=== PATIENT | male | born 1990 ===

== ENCOUNTER 2018-04-17 21:35 | Inpatient (IN) | payer OTHER, MEDICAID ==
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
[2018-04-17 23:24] LABS: BASO # 0.1 K/uL (0.0-0.2); BASO % 1.2 % (0.0-2.0); EOS # 0.1 K/uL (0.0-0.7); EOS % 1.7 % (0.0-4.0); HEMOGLOBIN 15.2 g/dL (12.0-18.0); MEAN CELL VOLUME 89.8 fL (80.0-94.0); MEAN CORPUSCULAR HGB CONC 33.4 g/dL (33.0-37.0); MEAN PLATELET VOLUME 8.5 fL (7.2-11.7); MONO # 0.6 K/uL (0.0-0.8); MONO % 8.1 % (0.0-10.0); NEUT # 3.3 K/uL (1.8-7.0); RBC 5.07 Mil/uL (4.40-5.90); RED CELL DISTRIBUTION WIDTH 14.3 % (11.5-14.5); WHITE BLOOD COUNT 7.1 K/uL (4.8-10.8)
[2018-04-17 23:27] LABS: URINE BILIRUBIN NEGATIVE (NEGATIVE); URINE BLOOD NEGATIVE (NEGATIVE); URINE CLARITY Hazy (Clear); URINE COLOR Yellow (YELLOW); URINE GLUCOSE (UA) NORMAL (Normal); URINE LEUKOCYTE ESTERASE NEG Leu/uL (Negative); URINE PROTEIN NEGATIVE (NEGATIVE)
[2018-04-17 23:35] LABS: ALB/GLOB RATIO 1.8 (1.0-2.1); ALBUMIN 5.1 g/dL (3.5-5.0); ALT/SGPT 20 U/L (21-72); AST/SGOT 18 U/L (17-59); BLOOD UREA NITROGEN 12 mg/dL (9-20); CALCIUM 9.4 mg/dl (8.6-10.4); GFR AFRICAN-AMERICAN > 60; GFR NON-AFRICAN AMERICAN > 60
[2018-04-17 23:38] LABS: BARBITURATES, UR NEGATIVE (NEGATIVE); BENZODIAZEPINES, UR NEGATIVE (NEGATIVE); OPIATES, UR NEGATIVE (NEGATIVE); PHENCYCLIDINE, UR NEGATIVE (NEGATIVE)
[2018-04-18 03:36] VITALS: O2SAT 100
--- NOTE | 2018-04-18 04:40 | PCM.BM ---
<Kathryn Kwan - Last Filed: 04/18/18 04:37> Treatment Plan Problems - Problems identified on initial assessmt Bizzare Behavior Date Initiated: 04/18/18 Time Initiated: 03:45 Assessment reference: NA Status: Active Anxiety Date Initiated: 04/18/18 Time Initiated: 03:45 Assessment reference: NA Status: Active Treatment assets and liabiliti Patient Assests: cooperative, self-reliant, ADL independent, physically healthy , good support system, negotiates basic needs, cognitively intact Patient Liabilities: relationship conflicts, substance abuse - Milieu Protocol Maintain good personal hygiene: daily Encourage regular showers, daily Remind patient to perform daily oral care, daily Assist patient to perform ADL's Conduct patient checks and document Observation sheet: Q15 minutes (safety ) Maintain personal safety: every shift Educate patient to report safety concerns to staff, every shift Monitor environment for contraband/sharps Medication safety: Monitor for expected outcome, potential side effects: every shift, Assess barriers to learning: every shift, Assess readiness for medication education: every shift <Prasad Ya - Last Filed: 04/19/18 13:44> - Diagnosis (1) Schizophrenia Status: Acute Interventions: 04/19/18 13:44 * Assess/adjust medications daily and /or as needed * See patient on an individual basis 7x/week to assess status of hallucinations * Discuss risks, benefits, side effects and alternatives of medications * <America Yoder - Last Filed: 04/19/18 15:39> Family Contact Family involvement: Patient does not wish Family/SO involvement Family contact: Patient declines to allow family contact at present - Goals for Treatment Patient goals for treatment: "I want to go to [facility] Partial Care Program." Discharge/Continuing Care - Education Needs Education Needs: Patient Medication, Patient Diagnosis/Disease Process, Patient Coping Skills, Patient Anger Management skills, Patient Placement options, Patient Community resources - Discharge Discharge Criteria: Free of paranoid thoughts, Free of agitation, Normal sleep pattern, Ability to care for self, No longer exhibiting s/s of withdrawal, Reduction of target symptoms Discharge to:: Home, With Family - Treatment Team Participation Discussed with Family/SO: No Was Patient/Family/SO present at Treatment Team Meeting: Yes
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
--- NOTE | 2018-04-19 12:35 | PCM.PYCHPN ---
Psychiatric Progress Note - Psychiatric Progress Note Patient seen today, length of contact: 15 min Patient Chief Complaint: I don't know why I am here.' Problems Identified/Issues Discussed: Patient was seen and chart was discussed with nurse. The patient states improvement in the voices. Patient appears more organized and less internally preoccupied than before. Pt appears less psychotic and less delusional than before. However during interview his affect is still flat, and he is not making any eye contact. He has signed a 48 hr notice to leave the unit and does not wish to rescind it. The patient reports no suicidal or homicidal ideations. He is taking medications but denies any side effects. Support and psychoeducation was given. Medication Change: No Medical Record Reviewed: Yes Mental Status Examination - Cognitive Function Orientation: Person, Place, Situation, Time Memory: Intact Attention: Poor Concentration: Poor Association: Loose Fund of Knowledge: Poor - Mood Mood: Anxious - Affect Affect: Flat - Speech Speech: Soft - Formal Thought Process Formal Thought Process: Hallucinations, Delusions, Paranoia, Loosening of associations - Suicidal Ideation Suicidal Ideation: No - Homicidal Ideation Homicidal Ideation: No Goal/Treatment Plan - Goal/Treatment Plan Need for Continued Stay: Severe depression anxiety, Severe functional impairment Progress Toward Problem(s) and Goals/Treatment Plan: Schizophrenia paranoid type continuous -Psychotherapy -Supportive therapy, group therapy, individual therapy -Depakote DR 250 mg PO BID -Fluphenazine 5 mg PO BID -Cogentin 1 mg PO BID -Atarax 25 mg PO Q6 prn -Trazodone 50 mg PO QHS prn -No new symptoms reported -Patient has signed 48 hour notice - Smoking Cessation Smoking Cessation Initiated: No
[2018-04-19] MEDS: Divalproex 250 mg DR Tab PO SCH ×2 (13:45→17:09)
[2018-04-20] MEDS: Divalproex 250 mg DR Tab PO SCH ×4 (10:20→17:05)
--- NOTE | 2018-04-21 07:54 | PCM.PYCHPN ---
Psychiatric Progress Note - Psychiatric Progress Note Patient seen today, length of contact: 15 min Patient Chief Complaint: "I feel better" Problems Identified/Issues Discussed: Patient seen, chart discussed with nurse. As per the staff, he appears more coherent. The patient reports improvement in the voices. He appears more organized and less delusional than before. His affect is still flat, and he demonstrates poor insight. When asked as to why he donated all his clothes; he replies that he thought it was a good idea. He also states that he needs medication to help him sleep. The patient denies any side effects from the medications, per nurse his blood pressure was low last night. Symptoms are improving but the patient needs more time to stabilize. Support and psychoeducation was given. Medication Change: No Medical Record Reviewed: Yes Mental Status Examination - Cognitive Function Orientation: Person, Place, Situation, Time Memory: Intact Attention: WNL Concentration: Poor Association: Loose Fund of Knowledge: Poor - Mood Mood: Anxious - Affect Affect: Flat - Speech Speech: Soft - Formal Thought Process Formal Thought Process: Hallucinations, Delusions, Paranoia, Loosening of associations - Suicidal Ideation Suicidal Ideation: No - Homicidal Ideation Homicidal Ideation: No Goal/Treatment Plan - Goal/Treatment Plan Need for Continued Stay: Severe depression anxiety, Severe functional impairment Progress Toward Problem(s) and Goals/Treatment Plan: Schizophrenia paranoid type continuous -Psychotherapy -Supportive therapy, group therapy, individual therapy -Depakote DR 250 mg PO BID -Fluphenazine 5 mg PO BID -Cogentin 1 mg PO BID -Atarax 25 mg PO Q6 prn -Trazodone 50 mg PO QHS prn -No new symptoms reported
[2018-04-21] MEDS: Divalproex 250 mg DR Tab PO SCH ×2 (09:57→17:17)
[2018-04-21] MEDS ORDERED: Pneumococcal 23-Valent Vaccine IM ONE (12:30)
[2018-04-22] MEDS: Divalproex 250 mg DR Tab PO SCH ×2 (09:12→17:10)
[2018-04-22 09:27] VITALS: RESP 17; TEMP 98
[2018-04-22 16:23] VITALS: BP 97/65; PULSE 75
[2018-04-23] MEDS: Divalproex 250 mg DR Tab PO SCH ×2 (10:27→17:46)
[2018-04-24] MEDS: Divalproex 250 mg DR Tab PO SCH (10:28)
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
== END 2018-04-24 15:04 | disposition home or self-care (01) | DRG 885 ==
LOC: C.ER 21:35 → C.5E 04-18 02:05
PROVIDERS: ADMIT Psychiatry & Neurology Psychiatry; ATTEND Psychiatry & Neurology Psychiatry
PROC: GZHZZZZ Group Psychotherapy (ICD-10-PCS; principal; 2018-04-18)
PROC: GZ56ZZZ Individual Psychotherapy, Supportive (ICD-10-PCS; 2018-04-18)
DX: F20.0 Paranoid schizophrenia (principal); F12.10 Cannabis abuse, uncomplicated

== ENCOUNTER 2018-04-30 19:20 | Emergency (ER) | payer OTHER, MEDICAID ==
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
[2018-04-30 19:48] LABS: BASO # 0.1 K/uL (0.0-0.2); BASO % 1.2 % (0.0-2.0); EOS # 0.1 K/uL (0.0-0.7); HEMOGLOBIN 14.4 g/dL (12.0-18.0); LYMPH # 2.3 K/uL (1.0-4.3); LYMPH % 26.4 % (20.0-40.0); MEAN CELL VOLUME 89.3 fL (80.0-94.0); MEAN CORPUSCULAR HEMOGLOBIN 29.5 pg (27.0-31.0); MEAN PLATELET VOLUME 8.6 fL (7.2-11.7); MONO # 0.6 K/uL (0.0-0.8); MONO % 7.2 % (0.0-10.0); NEUT # 5.6 K/uL (1.8-7.0); NEUT % 64.2 % (50.0-75.0); NRBC % 0.1 % (0.0-2.0); RBC 4.89 Mil/uL (4.40-5.90); RED CELL DISTRIBUTION WIDTH 14.3 % (11.5-14.5); WHITE BLOOD COUNT 8.6 K/uL (4.8-10.8)
[2018-04-30 20:07] LABS: ALB/GLOB RATIO 1.8 (1.0-2.1); ALBUMIN 4.9 g/dL (3.5-5.0); ALT/SGPT 25 U/L (21-72); AST/SGOT 18 U/L (17-59); BLOOD UREA NITROGEN 9 mg/dL (9-20); CALCIUM 9.7 mg/dl (8.6-10.4); GFR AFRICAN-AMERICAN > 60; GFR NON-AFRICAN AMERICAN > 60
[2018-04-30 21:01] LABS: SQUAMOUS EPITHIAL < 1 /hpf (0-5); URINE AMORPHOUS SEDIMENT OCC /ul (<OCC); URINE BILIRUBIN NEGATIVE (NEGATIVE); URINE BLOOD NEGATIVE (NEGATIVE); URINE CLARITY Hazy (Clear); URINE COLOR Yellow (YELLOW); URINE GLUCOSE (UA) NORMAL (Normal); URINE LEUKOCYTE ESTERASE NEG Leu/uL (Negative); URINE PROTEIN NEGATIVE (NEGATIVE)
[2018-04-30 21:10] LABS: BARBITURATES, UR NEGATIVE (NEGATIVE); BENZODIAZEPINES, UR NEGATIVE (NEGATIVE); OPIATES, UR NEGATIVE (NEGATIVE); PHENCYCLIDINE, UR NEGATIVE (NEGATIVE)
[2018-04-30] MEDS ORDERED: Naloxone 0.4 mg/ml Inj (Adult) IM ONE (22:13)
[2018-04-30] MEDS ORDERED: Naloxone 0.4 mg/ml Inj (Adult) ONE (22:18)
--- NOTE | 2018-05-01 08:45 | RAD ---
Date of service: 05/01/2018 PROCEDURE: CHEST RADIOGRAPH, 1 VIEW HISTORY: psych clearance COMPARISON: None available. FINDINGS: LUNGS: The lungs are well inflated and clear. PLEURA: No pneumothorax or pleural fluid seen. CARDIOVASCULAR: Normal. OSSEOUS STRUCTURES: No significant abnormalities. VISUALIZED UPPER ABDOMEN: Normal. OTHER FINDINGS: None. IMPRESSION: No active pulmonary disease.
[2018-05-01] MEDS ORDERED: Divalproex 500 mg DR Tab PO ONE (17:18)
[2018-05-01] MEDS: Divalproex 500 mg DR Tab PO SCH (18:00)
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
[2018-05-02 08:44] VITALS: RESP 18
[2018-05-02] MEDS: Divalproex 500 mg DR Tab PO SCH (10:17)
--- NOTE | 2018-05-02 13:34 | PCM.PYCHPN ---
Psychiatric Progress Note - Psychiatric Progress Note Medication Change: Yes Medical Record Reviewed: Yes
[2018-05-02 14:28] VITALS: BP 94/58; PULSE 84; TEMP 98.3; O2SAT 96
--- NOTE | 2018-05-02 14:53 | CP.PCM.PCO ---
Physician Communication Note - Physician Communication Note Physician Communication Note: Pt refused to talk. Previous meds ordered. Will follow
--- NOTE | 2018-05-03 10:12 | CARD ---
APPROVED REPORT Date of service: 05/01/2018 EKG Measurement Heart [id number] <Conclusion> Sinus bradycardia with marked sinus arrhythmia Rightward axis Borderline ECG
== END 2018-05-02 14:15 | disposition short-term general hospital (02) ==
LOC: C.ER 19:20
DX: F31.63 Bipolar disorder, current episode mixed, severe, without psychotic features (principal); F20.9 Schizophrenia, unspecified
CPT/HCPCS: 80053; 80320; 80324; 80329; 80345; 80346; 80349; 80353; 80358; 80361; 81001; 82948; 83992; 85025; 93005; 96372; 99285; J2060; J2310; J3486